=== PATIENT | male | born 1960 | race American Indian/Alaskan Native ===

== ENCOUNTER 2020-10-12 06:43 | Day surgery (SDC) | payer OTHER ==
[2020-10-12 07:43] LABS: Basophils % (Auto) 0.7 % (0.0-1.8); Eosinophils # (Auto) 0.4 K/mm3 (0.0-0.4); Eosinophils % (Auto) 6.1 % (0.0-4.3); Hemoglobin 15.6 gm/dl (11.8-15.2); Lymphocytes # (Auto) 2.8 K/mm3 (1.2-5.4); Lymphocytes % (Auto) 45.1 % (13.4-35.0); Mean Corpuscular HGB Conc 34 % (32-34); Mean Corpuscular Volume 90 fl (84-94); Monocytes # (Auto) 0.4 K/mm3 (0.0-0.8); Platelet Count 189 K/mm3 (140-440); Red Blood Count 5.14 M/mm3 (3.65-5.03); Red Cell Distribution Width 12.9 % (13.2-15.2)
[2020-10-12 07:58] LABS: INR 0.95 (0.87-1.13)
[2020-10-12] MEDS ORDERED: SODIUM CHLORIDE 0.9% 500 ML 500 ML IV SCH (08:00)
[2020-10-12] MEDS ORDERED: ASPIRIN EC 325 MG TAB PO SCH (08:00)
[2020-10-12 08:13] LABS: BUN/Creatinine Ratio 16; Blood Urea Nitrogen 13 mg/dL (9-20); Hemolysis Index 8
[2020-10-12] MEDS ORDERED: HEPARIN/NS 5000 UNIT/500ML 1,000 ML IR ONE (09:31)
[2020-10-12] MEDS ORDERED: NITROGLYCERIN SYRINGE 3 ML ONE (09:33)
[2020-10-12] MEDS: fentaNYL 100 MCG/2 ML INJ ONE ×2 (10:05→10:22)
[2020-10-12] MEDS: MIDAZOLAM 2 MG/2 ML INJ ONE ×2 (10:06→10:22)
[2020-10-12] MEDS: LIDOCAINE (2%) 20 MG/1 ML VIAL 20 ML MDV INFILTRATI ONE ×2 (10:06→10:25)
[2020-10-12] MEDS: HEPARIN 10,000 UNITS/10 ML VIAL ONE ×2 (10:07→10:26)
[2020-10-12] MEDS: VERAPAMIL 5 MG/2 ML INJ ONE ×2 (10:07→10:26)
[2020-10-12] MEDS ORDERED: HYDROcodone/ACETAMINOPHEN 5-325 MG TAB PO PRN (11:00)
[2020-10-12] MEDS ORDERED: traMADol 50 MG TAB PO PRN (11:00)
--- NOTE | 2020-10-12 11:00 | Short Stay Summary ---
Short Stay Documentation Date of service: 10/12/20 - History H&P: obtained from office - Allergies and Medications Current Medications: Allergies metoprolol Allergy (Verified 10/12/20 08:31) back spasms Home Medications Medication Instructions Recorded Confirmed Last Taken Type NIFEdipine [Nifedipine ER] 60 mg PO DAILY 10/12/20 10/12/20 10/12/20 History Triamterene/Hydrochlorothiazid 1 each PO DAILY 10/12/20 10/12/20 10/12/20 History [Triamterene-Hctz 75-50 mg Tab] Active Medications Aspirin (Aspirin Ec 325 Mg Tab) 325 mg PO ONCE LIDA Stop: 10/12/20 17:00 Last Admin: 10/12/20 08:20 Dose: 325 mg Documented by: Sodium Chloride (Nacl 0.9% 500 Ml) 500 mls @ 50 mls/hr IV DIRECT LIDA Stop: 10/12/20 17:59 Last Admin: 10/12/20 08:51 Dose: 50 mls/hr Documented by: - Brief post op/procedure progress note Date of procedure: 10/12/20 Pre-op diagnosis: abnlstress test Post-op diagnosis: same Procedure: see report Anesthesia: local Estimated blood loss: minimal Pathology: none - Disposition Condition at discharge: Good - Discharge Diagnoses (1) Hypertension Status: Chronic Qualifiers: Hypertension type: primary hypertension Qualified Code(s): I10 - Essential (primary) hypertension (2) Abnormal EKG Status: Chronic (3) CAD (coronary artery disease) Status: Acute Qualifiers: Coronary Disease-Associated Artery/Lesion type: citizen [place] artery (4) Hyperlipemia Status: Chronic Qualifiers: Hyperlipidemia type: mixed hyperlipidemia Qualified Code(s): E78.2 - Mixed hyperlipidemia Short Stay Discharge Plan Activity: advance as tolerated Wound: keep clean and dry Follow up with: SAMAN FLYNN MD [Primary Care Provider] - 7 Days
--- NOTE | 2020-10-12 13:11 | Cardiac Catherization Report ---
DATE OF SERVICE: 10/12/2020 CLINICAL INFORMATION: This is a 60-year-old -Citizen Of [place] gentleman who has hypertension, abnormal EKG, abnormal stress test, here for left heart catheterization. PROCEDURE: The procedure was done with moderate sedation, started at 10:22 and finished at 10:38, which is 16 minutes of moderate sedation. The procedure was performed via the right radial artery, sterile technique, local anesthesia, 6-Luxembourger radial sheath inserted. PROCEDURE FINDINGS: Left main is large and patent, bifurcates into large LAD that is patent. Circumflex, large caliber vessel, goes into a large OM1 and there is an upper and lower branch that are patent and normal. In the distal circumflex and AV groove at the very distal portion, there is a 50-60% blockage and diagonal 1 is a medium caliber vessel that is patent. RCA is a large, dominant, moderate tortuosity patent. PDA and PLV are patent with mild luminal irregularities in the distal portion of RCA and to the PDA, PLV. LV gram done in [place] and [place] view shows normal LV function, LVEDP 23 mmHg, LV is 152, aortic 150_/84. No gradient across the aortic valve on pullback. A 5-Luxembourger catheters all taken over guidewire, 6 [place] radial sheath was discontinued. Radial band applied. No hematoma, no bleeding. SUMMARY: Left main patent, LAD patent, circumflex proximal goes into a large OM, patent vessel. Distal circumflex and AV groove, has a 56% lesion of a 2 mm vessel and diagonal patent, RCA patent with mild luminal irregularities. Normal LV function. Medical management. Discussed this with the patient and the patient's family in detail. TID: [id number] RECEIPT: [id number] ISSAC/TALHA/TRINA PEACE
[2020-10-12 15:16] VITALS: BP 144/84
--- NOTE | 2020-10-13 09:59 | Electrocardiograph Report ---
[facility] Test Date: 2020-10-12 Test Time: 07:14:44 Pat Name: LEÓN SCHMIDT Department: Room: Gender: M Forensic Audit Expert: [place] : [id number] Requested By: ODALIS FAJARDO Order Number: [id number] Reading MD: Abram Jennings Measurements Intervals [place] Rate: 82 P: 57 MN: 167 QRS: 31 QRSD: 94 T: 192 QT: 390 QTc: 456 Interpretive Statements Sinus rhythm Probable left atrial enlargement LVH with secondary repolarization abnormality No previous ECG available for comparison Electronically Signed On 10-13-2020 9:58:46 EDT by Abram Jennings
== END 2020-10-12 14:50 | disposition home or self-care (01) ==
LOC: CATHLABREC 06:43
PROVIDERS: ATTEND Internal Medicine
DX: R94.39 Abnormal result of other cardiovascular function study (principal); I25.10 Atherosclerotic heart disease of native coronary artery without angina pectoris; I10 Essential (primary) hypertension; E78.5 Hyperlipidemia, unspecified; Z79.899 Other long term (current) drug therapy; Z98.890 Other specified postprocedural states
CPT/HCPCS: 36415; 80048; 85025; 85610; 85730; 93005; 93458; 99156; C1894; J1644; J2250; J3010; J7040; Q9967